=== PATIENT | female | born 1985 | race Caucasian/White ===

== ENCOUNTER 2018-02-25 05:05 | Inpatient (IN) | payer OTHER, SELFPAY ==
[2018-02-19 12:53] VITALS: BMI 56.6
[2018-02-25] VITALS (21 sets, daily range): BP systolic 78–145; BP diastolic 35–67; PULSE 73–105; RESP 12–24; TEMP 36.3–37.7; O2SAT 93–98; BMI 56.5
--- NOTE | 2018-02-25 | FALS_PTH ---
PATIENT: SOCRATES LUI LOC: [facility] U#:[id number] AGE/SX: 32/F ROOM: WP004 RE02/25/[address]: Dr. Hailee Velázquez MD : 1985 BED: 1 DIS: 02/28/2018 SPEC #: [id number] RECD: 02/25/18 13:52 STATUS: MELANIE REQ #: [id number] SATURNINO: 02/25/18 00:[address]: Hailee Velázquez DEPT: SURGICAL PATHOLOGY RECD BY: Jaxon Sloan ENTERED: 02/25/18 13:52 SP TYPE: FALL TUBES OTHR DR: Dr. Zachary Castillo, Tissues: Fallopian tube Procedures: Surgery Specimen Level II HEADER OPERATION: Repeat section, salpingectomy PRE-OP DIAGNOSIS: Requests sterilization TISSUE SUBMITTED: Fallopian tubes, suture in right tube MICROSCOPIC DIAGNOSIS Bilateral fallopian tubes, salpingectomy: Bilateral fallopian tubes including fimbrial ends, no pathologic diagnosis. SJ:zulay 02/26/18 MICROSCOPIC DESCRIPTION Slides are reviewed. GROSS DESCRIPTION Received is one container labeled with the patient's name and designated bilateral fallopian tubes, suture in right. The specimen consists of bilateral fallopian tubes including fimbrial ends. The right tube is identified by a suture measuring 6.5 cm in length and 0.7 cm in diameter. The left tube measures 6 cm in length and 0.6 cm in diameter. Sections reveal unremarkable cut surfaces. Programs Manager sections are submitted in two cassettes as follows: 1 - right tube, 2 - left tube. / NICOL:zulay 02/25/18 TC:4 CPT: 68960 x2
[2018-02-25] MEDS: Lactated Ringers 1,000 ML 999 ML IV ×2 (05:34→06:35)
[2018-02-25 06:12] LABS: Hematocrit 30.8 % (37-47); Hemoglobin 10.3 g/dl (12.0-15.0); Mean Corp Hgb Conc 33.4 g/gl (32-36); Mean Corpuscular Hgb 33.1 pg (27.0-32.0); Mean Platelet Vol. 9.7 fl (6.2-12.0); Platelet Count 170 K/mm3 (150-450); RBC Distribution Width CV 14.4 % (11.6-14.6); RBC Distribution Width SD 50.1 fl (35.1-43.9); Red Blood Count 3.11 M/mm3 (4.2-5.4); White Blood Count 7.6 K/mm3 (4.4-11.0)
[2018-02-25 06:14] LABS: Scan Indicated on CBC? Y/N NO
[2018-02-25] MEDS: Sodium Citrate/Citric Acid 30 ML UDC PO (08:10)
[2018-02-25] MEDS: Oxytocin 30 units/NS 500 ml 30 UNITS/500 ML IV.SOLN 167 UNITS IV (08:52)
[2018-02-25] MEDS: Lactated Ringers 1,000 ML 100 ML IV ×2 (09:22→19:00)
--- NOTE | 2018-02-25 09:40 | OP.PCM_ITS ---
Delivery Classification: Scheduled Final ANSHUL: 03/04/18 Gestational age: 39 Weeks and 0 Days Indications for : Repeat Elective , Desires elective sterilization Description of Procedure: Surgeon- Gill Velázquez MD Welt Insole Channeler Evon Elmore MD The patient was taken to the operating room. She was prepped and draped in the dorsal supine position with a leftward tilt. Her pannus was retracted with Willis type straps A Pfannenstiel skin incision was made approximately 2 cm above the symphysis pubis through her previous scar and carried through to underlying layer fascia with the scalpel. The fascia was incised incised in the midline and extended laterally with the [place] scissors. The fascia was dissected off the rectus muscles with blunt and sharp dissection. The rectus muscles were in the midline and the peritoneum was entered bluntly. The peritoneal incision was stretched and the bladder blade was placed. There were no intraperitoneal adhesions. The uterine incision was made in a low transverse fashion with the scalpel and extended superiorly and inferiorly with blunt dissection. The amniotic membranes were ruptured bluntly and clear amniotic fluid returned. The 's head was brought to the incision in the flexed position but would not engage. We attempted to deliver with fundal pressure, but the head extended. The baby had an extensive amount of hair. The vacuum was placed on the flexion point and 550 mmHg were pressure were created. I pulled twice with fundal pressure but the vacuum popped off easily likely because of the amount of hair on the baby scalp. We then attempted to extend the incisions again, but I did not feel that we are being held up by the amount of room in the incision it was more because the baby kept extending its head and would not engage in the incision. I then replaced the vacuum one more time and created the suction and with gentle traction and fundal massage and guidance with a hand in the lower uterine segment the head delivered easily. The vacuum was removed without another pop off. A loose nuchal cord x1 was easily reduced and the remainder of the infant was delivered with gentle traction and fundal pressure in the standard fashion. The mouth and nares were bulb suctioned. The cord was clamped and cut as the infant was stimulated. Cord clamping was not delayed because the baby was not initially vigorous. The was handed off to the waiting nursing staff. The placenta was delivered with fundal massage and gentle traction in the standard fashion. The uterus was exteriorized and cleared of all clots and debris. The cervix was dilated with a ring forcep. The uterine incision was closed with #1 Vicryl in a running locked fashion. A second layer of the same suture was used in an imbricating fashion. The incision was examined and was found to be hemostatic. The right tube was identified and followed out to the fimbriated end. The insertion near the cornual edge of the uterus was clamped across with a Rea clamp. The antimesenteric portions of the tube were clamped across with Rea clamps. the tube was removed from the uterus and the broad ligament with Metzenbaum scissors. The pedicles were oversewn with 3-0 Vicryl sutures and free ties. The pedicles were hemostatic and the same procedure was performed on the contralateral side. Both sides were confirmed to be hemostatic. Some Soheila was placed over the pedicles. The uterus was placed back into the peritoneal cavity and hemostasis was again confirmed. The rectus muscles were examined and any bleeding was Bovie cauterized. The parietal peritoneum and rectus muscles were closed en bloc with an 0 Vicryl running suture. The rectus fascia was examined and any bleeding was Bovie cauterized and the rectus fascia was closed with #1 PDS loop suture in a running standard fashion. The subcutaneous tissue was examining and any bleeding was Bovie cauterized. The subcutaneous tissue was reapproximated with 3-0 Vicryl suture. The skin was closed in a subcuticular fashion by me. I performed the entire procedure with assistance. Soheila was placed over the uterine incision, under the rectus fascia and in the subcutaneous tissue. All sponge, lap, and needle counts were correct. The patient was taken to her room for recovery in a stable condition. Amniotic Membrane Rupture Type: Artificial Amniotic Fluid Description: Clear Placenta Disposition: [facility] Specimen(s) sent to pathology: bilateral tubes Drain: Michelle to straight drain Fluids Replaced: 1500cc Cord Entanglement: Around neck x 1, loose Nuchal Cord Compression: Without compression Cord Vessel Description: 3 Vessels Esitmated Blood Loss (ml): 900cc Infant Gender: Female (1 minute): 7 (5 minute): 9 Delayed cord clamping: No Pre-op Antibiotic Given: - - ancef 3 gm - Admit VTE Documentation VTE Present on Admission: No VTE Mechan Device Prophylaxis: SCD's VTE Pharm Prophylaxis ordered?: Yes
[2018-02-25 10:50] LABS: Pathology Specimen OB SEE PATHOLOGY REPORT
[2018-02-25] MEDS: Senna/Docusate Sodium 1 Tablet PO ×2 (13:11→22:27)
[2018-02-25] MEDS: Docusate Sodium 100 MG Capsule PO (13:12)
[2018-02-25] MEDS: Ketorolac 30 MG/ML Syringe IV ×2 (14:15→19:55)
[2018-02-26] VITALS (8 sets, daily range): BP systolic 99–144; BP diastolic 53–92; PULSE 91–98; RESP 14–20; TEMP 36.3–37.1; O2SAT 91–99
[2018-02-26] MEDS: Ketorolac 30 MG/ML Syringe IV ×4 (02:17→19:52)
[2018-02-26] MEDS: Enoxaparin 40 MG/0.4 ML Syringe SC (05:25)
[2018-02-26 05:51] LABS: Hematocrit 29.1 % (37-47); Hemoglobin 9.9 g/dl (12.0-15.0); Mean Corpuscular Hgb 33.4 pg (27.0-32.0); Mean Corpuscular Volume 98.3 fL (81-99); Mean Platelet Vol. 9.2 fl (6.2-12.0); Platelet Count 158 K/mm3 (150-450); RBC Distribution Width CV 14.3 % (11.6-14.6); RBC Distribution Width SD 49.3 fl (35.1-43.9); Red Blood Count 2.96 M/mm3 (4.2-5.4); White Blood Count 7.7 K/mm3 (4.4-11.0)
[2018-02-26 06:33] LABS: Scan Indicated on CBC? Y/N NO
--- NOTE | 2018-02-26 07:48 | PCM.PN.OB ---
Subjective: pain well controlled, average lochia - Physical Exam General: Alert, Cooperative, No apparent distress Abdomen: Soft, Non-Distended, Tender - appropriately Extremities: Edema - 1+ Skin: - - bandage clean, dry and intact Vital Signs Temp Pulse Resp BP Pulse Ox 97.3 F L 97 18 100/53 L 94 02/26/18 05:23 02/26/18 06:24 02/26/18 06:24 02/26/18 05:23 02/26/18 06:24 Oxygen Delivery Method Room Air Weight: 149.232 kg Body Mass Index (BMI) 56.5 Intake and Output for Last 24 Hours 02/24/18 02/25/18 02/26/18 23:59 23:59 23:59 Intake Total 3770 / 3770 975 / 975 Output Total 600 / 600 1400 / 1400 Balance 3170 / 3170 -425 / -425 Laboratory Tests Past 24 Hrs 02/26/18 05:25 WBC 7.7 RBC 2.96 L Hgb 9.9 L Hct 29.1 L MCV 98.3 MCH 33.4 H MCHC 34.0 RDW 14.3 RDW Differential 49.3 H Plt Count 158 MPV 9.2 Medical Necessity - Tobacco Use Smoking Status: Never smoker Assessment/Plan POD #1 [facility] and [facility] well
[2018-02-26] MEDS: Senna/Docusate Sodium 1 Tablet PO ×2 (08:17→22:29)
[2018-02-26] MEDS: 0.9% Saline Lock 10 ML Syringe IV ×4 (08:18→19:52)
[2018-02-26] MEDS: Ondansetron 4 MG/2 ML Vial IV (18:21)
--- NOTE | 2018-02-26 18:49 | NURSING ---
pt complains of gagging and feeling like she has mucus stuck in her throat. pt is also nauseated. pt medicated with zofran and encouraged to use IS, cough, cough & deep breath and walk in the hallway
[2018-02-26] MEDS: oxyCODONE 5 MG Tablet PO (22:29)
[2018-02-27] MEDS: 0.9% Saline Lock 10 ML Syringe IV ×2 (03:03→09:08)
[2018-02-27] MEDS: Ketorolac 30 MG/ML Syringe IV ×2 (03:03→09:07)
[2018-02-27 03:09] VITALS: BP 136/78; PULSE 82; RESP 18; TEMP 36.9; O2SAT 96
[2018-02-27] MEDS: Enoxaparin 40 MG/0.4 ML Syringe SC (05:33)
--- NOTE | 2018-02-27 08:35 | DCINST_ITS ---
Discharge Diet: No Restrictions Discharge Activity: May Not Drive - for 2 weeks or while taking narcotic pain meds., May Shower, May Take a Tub Bath - in 7 days. May resume sexual activity in: 4-6 weeks Lifting Restrictions: 20 pounds Additional Activity Instructions:: Nothing in the vagina for 4-6 weeks. You may return to work/school in 6 weeks. Call your doctor if your incision/area has: Continuous Slow Oozing, Sudden Increased Bleeding, Increased Pain/ Swelling, Increased Redness, Foul Smelling Discharge Call your doctor if you observe: Fever of 101 or Higher, Inability to urinate, Inability to have a bowel movement, Using more than one pad per hour, Calf discomfort, Uncontrolled pain Suture Line Care: Avoid Pulling/Pushing, Avoid Pinching/Bending Cleanse incision/area with: Soap & Water, Keep Dressing Clean & Dry Additional Instructions: If you experience any of the following, contact your healthcare provider. * Bleeding that soaks a pad every hour for 2 hours * Fever 100.4 or higher * Unrelieved incision or abdominal pain * Swelling, redness, discharge or bleeding from your incision or episiotomy site * Your incision begins to separate * Problems urinating (including inability to urinate or burning while urinating). * Visual changes * Severe headache * Flu-like symptoms * Pain or redness in one of both of your breasts * Pain, warmth, tenderness or swelling in your legs, especially the calf area * Frequent nausea and vomiting * Symptoms of depression or anxiety If you experience any of the following, call 911 or go to the nearest Emergency Room. * Chest pain * Problems breathing * Seizure activity * Partial or complete paralysis of a body part, slurred speech, weakness or drooping of the face, or a sudden inability to walk or hold your balance Allergies/Adverse Reactions: Allergies No Known Allergies Allergy (Verified 02/19/18 12:54) Medications to take at Discharge Aspirin [Aspirin, Baby] 81 mg PO DAILY 02/19/18 Ferrous Gluconate 325 mg 02/19/18 Guaifenesin/Dextromethorphan [Mucinex Dm ER 600-30 mg Tablet] 02/19/18 Vits96/Iron Fum/Folic [ Tablet] 02/19/18 Ranitidine [Zantac] 150 mg PO BID 02/19/18 Docusate Sodium [Colace] 100 mg PO BID #30 capsule 02/27/18 Naproxen [Naprosyn] 250 - 500 mg PO Q8H PRN PRN #30 tablet 02/27/18 Oxycodone [Oxyir] 5 - 10 mg PO Q4H PRN PRN 7 Days #28 tab 02/27/18 The following prescriptions were given: Oxycodone [Oxyir] 5 - 10 mg PO Q4H PRN PRN 7 Days #28 tab PRN Reason: Mod-Severe Pain (4-02/13) Naproxen [Naprosyn] 250 - 500 mg PO Q8H PRN PRN #30 tablet PRN Reason: Mild Pain (1-07/14) Follow-Up: Call to make an appointment with your doctor for an incision check in 1-2 weeks. You will also need a 6 week post- follow up appointment. Test results from this visit will be discussed in further detail at your follow- up appointment, if applicable. Please Follow Up With: Hailee Velázquez MD When: 1-2 weeks for incision check, 6 weeks for PP visit Primary Care Physician: Zachary Castillo [Primary Care Provider] -
--- NOTE | 2018-02-27 08:35 | PCM.PN.OB ---
Subjective: pain well controlled, average lochia. No N/V. Sobia. regular diet. +Bm. - Physical Exam General: Alert, Cooperative, No apparent distress Abdomen: Soft, Non-Distended, Tender - appropriately, - - bandage clean, dry and itnact Skin: No rashes Vital Signs Temp Pulse Resp BP Pulse Ox 98.5 F 82 18 136/78 H 96 02/27/18 03:09 02/27/18 03:09 02/27/18 03:09 02/27/18 03:09 02/27/18 03:09 Oxygen Delivery Method Room Air Weight: 149.232 kg Body Mass Index (BMI) 56.5 Intake and Output for Last 24 Hours 02/25/18 02/26/18 02/27/18 23:59 23:59 23:59 Intake Total 3770 / 3770 975 / 975 Output Total 600 / 600 2150 / 2150 Balance 3170 / 3170 -1175 / -1175 Medical Necessity - Tobacco Use Smoking Status: Never smoker Assessment/Plan POD#2 doing well ready for d/c if ok for d/c routine instructions and prescriptions is going well
[2018-02-27] MEDS: Senna/Docusate Sodium 1 Tablet PO (09:07)
[2018-02-27 09:18] VITALS: BP 126/72; PULSE 78; RESP 16; TEMP 36.6; O2SAT 96
[2018-02-27 14:00] VITALS: BP 118/61; PULSE 86; RESP 16; TEMP 36.6; O2SAT 98
[2018-02-27] MEDS: Naproxen 250 MG Tablet PO (17:22)
[2018-02-27 20:05] VITALS: BP 120/68; PULSE 86; RESP 20; TEMP 37.1; O2SAT 96
[2018-02-28 03:13] VITALS: BP 127/86; PULSE 85; RESP 16; TEMP 36.6
[2018-02-28] MEDS: Enoxaparin 40 MG/0.4 ML Syringe SC (06:11)
[2018-02-28 08:00] VITALS: BP 131/85; PULSE 80; RESP 18; TEMP 36.6
[2018-02-28] MEDS: Naproxen 250 MG Tablet PO (08:10)
--- NOTE | 2018-02-28 08:44 | PCM.PN.OB ---
Subjective: Pain well controlled. Average lochia. Working on breast-feeding. - Physical Exam General: Alert, Cooperative, No apparent distress Abdomen: Soft, Non-Distended, Tender - Appropriate, - - Pannus is very large and completely covers the mons and incision Skin: Incision - Bandages clean dry and intact Vital Signs Temp Pulse Resp BP Pulse Ox 97.8 F 85 16 127/86 H 96 02/28/18 03:13 02/28/18 03:13 02/28/18 03:13 02/28/18 03:13 02/27/18 20:05 Oxygen Delivery Method Room Air Weight: 149.232 kg Body Mass Index (BMI) 56.5 Intake and Output for Last 24 Hours 02/26/18 02/27/18 02/28/18 23:59 23:59 23:59 Intake Total 975 / 975 Output Total 2150 / 2150 Balance -1175 / -1175 Medical Necessity - Tobacco Use Smoking Status: Never smoker Assessment/Plan Postoperative day #3 status post repeat and bilateral salpingectomy. Patient stated yesterday due to the having some jaundice. She is working on breast-feeding today. Likely home later. I discussed with her that I would have her leave her bandage on until Sunday when she can follow-up in the office and will remove it. I recommended that she keep a towel under her pannus to help with air circulation. She will be discharged home with routine instructions and prescriptions.
--- NOTE | 2018-02-28 08:47 | PCM.DC.SUM ---
Discharge Date and Diagnosis Date of Admission: 02/25/18 Date of Discharge: 02/28/18 Hospital Course and Treatment Operations: - - Repeat low transverse section Via Pfannenstiel skin incision with bilateral salpingectomy Procedures: None Summary of Care Provided: The patient is a 32 year old female admitted at 39 weeks gestation for repeat section and sterilization. Her repeat section and bilateral salpingectomy were performed without difficulty. By postoperative day #3 she is annually, urinating, tolerating regular diet and oral pain medications without difficulty. She was discharged home with routine instructions. She is to follow-up in my office in 4 days for incision check and bandage removal or as needed. [] - Physical Exam Vital Signs Temp Pulse Resp BP Pulse Ox 97.8 F 85 16 127/86 H 96 02/28/18 03:13 02/28/18 03:13 02/28/18 03:13 02/28/18 03:13 02/27/18 20:05 Oxygen Delivery Method Room Air Weight: 149.232 kg Body Mass Index (BMI) 56.5 Intake and Output for Last 24 Hours 02/26/18 02/27/18 02/28/18 23:59 23:59 23:59 Intake Total 975 / 975 Output Total 2150 / 2150 Balance -1175 / -1175 Discharge Diet: No Restrictions Discharge Activity: May Not Drive - for 2 weeks or while taking narcotic pain meds., May Shower, May Take a Tub Bath - in 7 days. May resume sexual activity in: 4-6 weeks Additional Activity Instructions:: Nothing in the vagina for 4-6 weeks. You may return to work/school in 6 weeks. Call your doctor if your incision/area has: Continuous Slow Oozing, Sudden Increased Bleeding, Increased Pain/ Swelling, Increased Redness, Foul Smelling Discharge Call your doctor if you observe: Fever of 101 or Higher, Inability to urinate, Inability to have a bowel movement, Using more than one pad per hour, Calf discomfort, Uncontrolled pain Suture Line Care: Avoid Pulling/Pushing, Avoid Pinching/Bending Cleanse incision/area with: Soap & Water, Keep Dressing Clean & Dry Home Medications: Medications to take at Discharge Aspirin [Aspirin, Baby] 81 mg PO DAILY 02/19/18 Ferrous Gluconate 325 mg 02/19/18 Guaifenesin/Dextromethorphan [Mucinex Dm ER 600-30 mg Tablet] 02/19/18 Vits96/Iron Fum/Folic [ Tablet] 02/19/18 Ranitidine [Zantac] 150 mg PO BID 02/19/18 Docusate Sodium [Colace] 100 mg PO BID #30 capsule 02/27/18 Naproxen [Naprosyn] 250 - 500 mg PO Q8H PRN PRN #30 tablet 02/27/18 Oxycodone [Oxyir] 5 - 10 mg PO Q4H PRN PRN 7 Days #28 tab 02/27/18 Following Prescrptions Were Given to Patient: Oxycodone [Oxyir] 5 - 10 mg PO Q4H PRN PRN 7 Days #28 tab PRN Reason: Mod-Severe Pain (-02/13) Naproxen [Naprosyn] 250 - 500 mg PO Q8H PRN PRN #30 tablet PRN Reason: Mild Pain (1-07/14) Primary Care Physician: Zachary Castillo [Primary Care Provider] - Please Follow Up With: Hailee Velázquez MD When: 1-2 weeks for incision check, 6 weeks for PP visit Medical Necessity - Tobacco Use Smoking Status: Never smoker Meaningful Use Info Meaningful Use Diagnoses (Choose all that apply): None applicable
[2018-02-28] MEDS: Docusate Sodium 100 MG Capsule PO (10:04)
[2018-02-28 15:13] LABS: Pathology Specimen OB SEE PATHOLOGY REPORT
== END 2018-02-28 12:20 | disposition home or self-care (01) | DRG 784 ==
PROVIDERS: Admitting Provider Obstetrics & Gynecology; Family Provider Family Medicine; PCP Family Medicine; Referring Provider Obstetrics & Gynecology; Visit Provider Obstetrics & Gynecology
PROC: 10D00Z1 Extraction of Products of Conception, Low, Open Approach (ICD-10-PCS; CPT 59514; principal; 2018-02-25 07:15)
DX: O34.211 Maternal care for low transverse scar from previous cesarean delivery (principal); Z68.43 Body mass index [BMI] 50.0-59.9, adult; O99.214 Obesity complicating childbirth; E66.9 Obesity, unspecified; O69.81X0 Labor and delivery complicated by cord around neck, without compression, not applicable or unspecified; Z3A.39 39 weeks gestation of pregnancy; Z37.0 Single live birth; K21.9 Gastro-esophageal reflux disease without esophagitis; O75.89 Other specified complications of labor and delivery; Z79.82 Long term (current) use of aspirin; Z79.899 Other long term (current) drug therapy
CPT/HCPCS: 85027; 86850; 86900; 88302; 94762; 99218; J7120; A4216; G0378; J2405